=== PATIENT | female | born 1960 | race Caucasian/White ===

== ENCOUNTER 2016-08-27 05:38 | Day surgery (SDC) | payer OTHER ==
[~2016-08-27 05:38] MED LIST: ACETAMINOPHEN500 M4 PO; ASPIR 8181 M1 PO; ATENOLOL-CHLOR1 EAC1 PO; ATENOLOL/CHLORT1 TA PO; ATENOLOL50 M1 PO; AZITHROMYCIN; COLACE100 M1 PO; CYCLOBENZAPRINE10 M1 PO; CYCLOBENZAPRINE5 M1 PO; FLEXERIL10 MG PO; KLOR-CON 1010 ME1 PO; KLOR-CON 88 ME1 PO; L-LYSINE PO; LISINOPRIL40 M1 PO; MEGA RED FISH OIL PO; MULTIVITAMINS1 EAC6 PO; NEURONTIN100 M1 PO; NICODERM CQ1 EAC1 TD; NUCYNTA ER50 M1 PO; NUCYNTA50 M1 PO; STOP THE FOLLOWING:; SYNTHROID150 MC1 PO; SYNTHROID150 MCG PO; VANCOMYCIN1 GM/1001 IV; VITAMIN E400 UNI4 PO; XANAX0.5 M1 PO; XANAX0.5 MG PO; ZOFRAN ODT4 MG SL
== END 2016-08-27 11:15 ==
LOC: SHSB 05:38 → ORE 07:30 → PACU 08:23 → SHSB 09:15
PROC: 099600Z Drainage of Left Middle Ear with Drainage Device, Open Approach (ICD-10-PCS; principal; 2016-08-27)
PROC: 099500Z Drainage of Right Middle Ear with Drainage Device, Open Approach (ICD-10-PCS; 2016-08-27)
PROC: 097G7ZZ Dilation of Left Eustachian Tube, Via Natural or Artificial Opening (ICD-10-PCS; 2016-08-27)
PROC: 097F7ZZ Dilation of Right Eustachian Tube, Via Natural or Artificial Opening (ICD-10-PCS; 2016-08-27)
DX: H69.83 Other specified disorders of Eustachian tube, bilateral (principal); H65.33 Chronic mucoid otitis media, bilateral; I10 Essential (primary) hypertension; E03.9 Hypothyroidism, unspecified; F41.9 Anxiety disorder, unspecified; F17.210 Nicotine dependence, cigarettes, uncomplicated; Z79.899 Other long term (current) drug therapy; Z88.0 Allergy status to penicillin; Z88.1 Allergy status to other antibiotic agents; Z88.2 Allergy status to sulfonamides; Z88.5 Allergy status to narcotic agent; Z85.3 Personal history of malignant neoplasm of breast; Z87.891 Personal history of nicotine dependence; Z90.710 Acquired absence of both cervix and uterus; Z90.89 Acquired absence of other organs; Z90.13 Acquired absence of bilateral breasts and nipples; Z98.890 Other specified postprocedural states
CPT/HCPCS: C1726; J0171